=== PATIENT | female | born 1955 | race African-American/Black ===

== ENCOUNTER 2017-09-30 17:41 | Inpatient (IN) | payer MEDICAID ==
[~2017-09-30] VITALS: Ht 167.6 cm; Wt 84.8 kg
[~2017-09-30 17:41] MED LIST: ASPI-1158 PO; ATOR10TA69 PO; BENA5TAB3 PO; CITA20TA11 PO; D-ME473S8 PO; FERR-63 PO; GABA800T97 PO; INSLAN SUBCUT; INSU100C6 SQ; METF500T4 PO; MIRT15TA6 PO
[2017-09-30] MEDS ORDERED: ONDANSETRON HCL 4MG/2ML VIAL IV STA (18:23)
[2017-09-30] MEDS ORDERED: SODIUM CHLORIDE 0.9% 500 ML IV ONE (18:23)
[2017-09-30] MEDS ORDERED: MORPHINE SULFATE 4 MG/ML CPJ (NOT FOR IM USE) IV STA (18:23)
[2017-09-30] MEDS ORDERED: INSULIN REGULAR (HUMULIN R) UD 100 UNITS/ML SYR SUBCUT ONE (18:30)
[2017-09-30 19:10] LABS: INR 1.1; PARTIAL THROMBOPLASTIN TIME 23.9 sec (23.4-31.0); PROTHROMBIN TIME 11.1 sec (9.4-11.6)
[2017-09-30 19:12] LABS: BASOPHILS % 0.4 % (0.0-2.0); EOSINOPHILS % 2.1 % (0.0-5.0); HEMATOCRIT. 35.4 % (36.0-48.0); HEMOGLOBIN. 11.7 g/dL (12.0-16.0); LYMPHOCYTES % 19.5 % (20.0-50.0); MEAN CORPUSCULAR HEMOGLOBIN 28.5 pg (28.0-32.0); MEAN CORPUSCULAR VOLUME 86.4 fL (81.0-99.0); MONOCYTES % 9.2 % (2.0-8.0); NEUTROPHILS % 68.8 % (40.0-76.0); PLATELET 226 x1000/uL (130-400); RED CELL DISTRIBUTION WIDTH 14.5 % (11.6-14.6)
[2017-09-30 19:15] LABS: CARBON DIOXIDE 24 mEq/L (21-32); CHLORIDE 103 mEq/L (98-107); TROPONIN I <0.01 ng/mL ng/mL (0.00-0.04)
[2017-09-30 19:16] LABS: CREATINE KINASE MB FRACTION 2.1 ng/mL (0.5-3.6)
[2017-09-30] MEDS ORDERED: INSULIN REGULAR (HUMULIN R) 300UNITS/3ML IV ONE (20:15)
[2017-09-30] MEDS ORDERED: SODIUM POLYSTYRENE SULFONATE 15 G/60 ML BOT PO ONE (20:15)
[2017-09-30] MEDS ORDERED: ALBUTEROL (0.083%) 2.5MG/3ML NEB HHN ONE (20:15)
[2017-09-30] MEDS ORDERED: SODIUM BICARBONATE 8.4% 1 MEQ/ML 50ML SYR IV ONE (20:15)
[2017-09-30] MEDS ORDERED: CEFTRIAXONE 1 G PREMIX 50 ML IV ONE (21:15)
[2017-09-30 21:29] LABS: CLARITY URINE CLEAR (CLEAR); COLOR URINE YELLOW (YELLOW); KETONES URINE TRACE (NEGATIVE); LEUKOCYTE ESTERASE URINE 1+ (NEGATIVE); NITRITE URINE NEGATIVE (NEGATIVE); OCCULT BLOOD URINE 1+ (NEGATIVE); PROTEIN URINE 2+ (NEGATIVE); SPECIFIC GRAVITY URINE 1.028 (1.005-1.030); UROBILINOGEN URINE 0.2 E.U./dL (0.2-1.0)
[2017-09-30] MEDS ORDERED: SODIUM CHLORIDE 0.9% 1,000 ML IV SCH (22:40)
[2017-09-30] MEDS ORDERED: ENOXAPARIN 40MG/0.4ML SYR SUBCUT SCH (22:45)
[2017-09-30] MEDS ORDERED: ONDANSETRON HCL 4MG/2ML VIAL IV PRN (22:45)
[2017-09-30] MEDS ORDERED: ACETAMINOPHEN 325MG TABLET PO PRN (22:45)
[2017-09-30] MEDS ORDERED: CLONIDINE 0.1MG TABLET PO PRN (22:45)
[2017-09-30] MEDS ORDERED: IPRATROPIUM/ALBUTEROL 0.5-3(2.5)MG/3ML NEB INH PRN (22:45)
[2017-09-30] MEDS ORDERED: MAGNESIUM/ALUMINUM HYDROXIDE/SIMETHICONE 30ML UDC PO PRN (22:45)
[2017-10-01] VITALS (7 sets, daily range): BP systolic 75–132; BP diastolic 37–82
[2017-10-01] MEDS ORDERED: MORPHINE SULFATE 4 MG/ML CPJ (NOT FOR IM USE) IV SCH (01:56)
[2017-10-01] MEDS ORDERED: INSULIN REGULAR (HUMULIN R) 300UNITS/3ML SUBCUT SCH (02:30)
[2017-10-01] MEDS ORDERED: DEXTROSE 50% WATER 50ML SYRINGE IV PRN (08:15)
[2017-10-01] MEDS ORDERED: INSULIN LISPRO 100 UNITS/ML SUBCUT SCH (09:15)
[2017-10-01] MEDS: ENOXAPARIN 40MG/0.4ML SYR SUBCUT SCH (09:16)
[2017-10-01] MEDS: INSULIN LISPRO 100 UNITS/ML SUBCUT SCH ×5 (09:18→21:43)
[2017-10-01 10:23] LABS: *AMPHETAMINES SCREEN URINE NEGATIVE (NEGATIVE); *BARBITURATES SCREEN URINE NEGATIVE (NEGATIVE); *BENZODIAZEPINES SCREEN URINE NEGATIVE (NEGATIVE); *COCAINE SCREEN URINE NEGATIVE (NEGATIVE); CANNABINOID URINE SCREEN NEGATIVE (NEGATIVE); METHADONE URINE SCREEN NEGATIVE (NEGATIVE); OPIATES URINE SCREEN NEGATIVE (NEGATIVE); PHENCYCLIDINE URINE SCREEN NEGATIVE (NEGATIVE)
[2017-10-01] MEDS: BLOOD SUGAR DIAGNOSTIC STRIP TEST SCH ×3 (12:16→21:00)
[2017-10-01] MEDS ORDERED: HYDROCODONE/ACETAMINOPHEN 5/325MG TABLET PO PRN (12:30)
[2017-10-01 12:36] LABS: CLARITY URINE CLOUDY (CLEAR); COLOR URINE YELLOW (YELLOW); KETONES URINE NEGATIVE (NEGATIVE); LEUKOCYTE ESTERASE URINE 2+ (NEGATIVE); NITRITE URINE NEGATIVE (NEGATIVE); OCCULT BLOOD URINE TRACE (NEGATIVE); PROTEIN URINE 1+ (NEGATIVE); UROBILINOGEN URINE 0.2 E.U./dL (0.2-1.0)
[2017-10-01] MEDS: MORPHINE SULFATE 4 MG/ML CPJ (NOT FOR IM USE) IV PRN ×2 (18:51→23:11)
[2017-10-01] MEDS: INSULIN GLARGINE UD 100 UNITS/ML SYR SUBCUT SCH (21:45)
[2017-10-01] MEDS: SODIUM CHLORIDE 0.9% 1,000 ML IV SCH (21:47)
[2017-10-02] VITALS (8 sets, daily range): BP systolic 91–158; BP diastolic 53–82
[2017-10-02] MEDS: SODIUM CHLORIDE 0.9% 1,000 ML IV SCH ×3 (05:23→21:25)
[2017-10-02] MEDS: MORPHINE SULFATE 4 MG/ML CPJ (NOT FOR IM USE) IV PRN ×4 (05:38→20:13)
[2017-10-02] MEDS: BLOOD SUGAR DIAGNOSTIC STRIP TEST SCH ×4 (06:59→20:12)
[2017-10-02] MEDS: INSULIN LISPRO 100 UNITS/ML SUBCUT SCH ×7 (07:04→20:12)
[2017-10-02] MEDS: ENOXAPARIN 40MG/0.4ML SYR SUBCUT SCH (08:16)
[2017-10-02 10:25] LABS: BASOPHILS % 0.7 % (0.0-2.0); EOSINOPHILS % 3.9 % (0.0-5.0); HEMATOCRIT. 31.2 % (36.0-48.0); HEMOGLOBIN. 10.3 g/dL (12.0-16.0); LYMPHOCYTES % 35.1 % (20.0-50.0); MEAN CORPUSCULAR HEMOGLOBIN 28.5 pg (28.0-32.0); MEAN CORPUSCULAR VOLUME 86.1 fL (81.0-99.0); MEAN PLATELET VOLUME 10.9 fl (7.4-10.4); MONOCYTES % 8.2 % (2.0-8.0); NEUTROPHILS % 52.1 % (40.0-76.0); PLATELET 184 x1000/uL (130-400); RED BLOOD CELL COUNT 3.62 mill/uL (4.2-5.4); RED CELL DISTRIBUTION WIDTH 14.4 % (11.6-14.6)
[2017-10-02] MEDS: INSULIN GLARGINE UD 100 UNITS/ML SYR SUBCUT SCH ×2 (11:06→21:25)
[2017-10-02 11:34] LABS: PHOSPHORUS 2.5 mg/dL (2.5-4.9)
[2017-10-03] VITALS: BP 120/56
[2017-10-03] MEDS: MORPHINE SULFATE 4 MG/ML CPJ (NOT FOR IM USE) IV PRN ×2 (00:11→04:38)
[2017-10-03 04:00] VITALS: BP 118/70
[2017-10-03] MEDS: BLOOD SUGAR DIAGNOSTIC STRIP TEST SCH ×2 (05:52→12:29)
[2017-10-03] MEDS: INSULIN LISPRO 100 UNITS/ML SUBCUT SCH ×3 (06:30→12:40)
[2017-10-03 06:37] LABS: BASOPHILS % 0.5 % (0.0-2.0); EOSINOPHILS % 5.2 % (0.0-5.0); HEMATOCRIT. 28.9 % (36.0-48.0); HEMOGLOBIN. 9.7 g/dL (12.0-16.0); LYMPHOCYTES % 32.9 % (20.0-50.0); MEAN CORPUSCULAR HEMOGLOBIN 29.2 pg (28.0-32.0); MEAN CORPUSCULAR VOLUME 86.9 fL (81.0-99.0); MEAN PLATELET VOLUME 11.1 fl (7.4-10.4); MONOCYTES % 10.1 % (2.0-8.0); NEUTROPHILS % 51.3 % (40.0-76.0); PLATELET 147 x1000/uL (130-400); RED BLOOD CELL COUNT 3.33 mill/uL (4.2-5.4); RED CELL DISTRIBUTION WIDTH 14.3 % (11.6-14.6)
[2017-10-03 08:00] VITALS: BP_SYST 127; BP_SYST 92; BP_DIAS 63; BP_DIAS 64
[2017-10-03] MEDS: SODIUM CHLORIDE 0.9% 1,000 ML IV SCH (08:16)
[2017-10-03] MEDS: ENOXAPARIN 40MG/0.4ML SYR SUBCUT SCH (08:22)
[2017-10-03 08:56] VITALS: BP 123/69
[2017-10-03 09:23] LABS: PHOSPHORUS 3.3 mg/dL (2.5-4.9)
[2017-10-03] MEDS: INSULIN GLARGINE UD 100 UNITS/ML SYR SUBCUT SCH (09:34)
[2017-10-03 10:07] LABS: KAPPA LT CHAINS FREE SERUM 91.9 mg/L (3.3-19.4); KAPPA/LAMBDA RATIO 1.7 (0.26-1.65); LAMBDA LT CHAINS FREE SERUM 54.2 mg/L (5.7-26.3)
[2017-10-03 12:22] VITALS: BP 132/74
[2017-10-03 13:57] VITALS: BP 132/74
== END 2017-10-03 15:00 | disposition home or self-care (01) | DRG 135 ==
LOC: ER 18:08 → 8WST 20:46 → ENRESERV 22:06 → ER 10-01 04:56
PROVIDERS: ADMIT Internal Medicine; ATTEND Internal Medicine
PROC: 05HY33Z Insertion of Infusion Device into Upper Vein, Percutaneous Approach (ICD-10-PCS; principal; 2017-10-01)
PROC: B54MZZA Ultrasonography of Right Upper Extremity Veins, Guidance (ICD-10-PCS; 2017-10-01)
DX: S22.42XA Multiple fractures of ribs, left side, initial encounter for closed fracture (principal); E11.22 Type 2 diabetes mellitus with diabetic chronic kidney disease; N17.9 Acute kidney failure, unspecified; N18.3 Chronic kidney disease, stage 3 (moderate); E11.65 Type 2 diabetes mellitus with hyperglycemia; S09.90XA Unspecified injury of head, initial encounter; E87.5 Hyperkalemia; W18.30XA Fall on same level, unspecified, initial encounter; J44.9 Chronic obstructive pulmonary disease, unspecified; I12.9 Hypertensive chronic kidney disease with stage 1 through stage 4 chronic kidney disease, or unspecified chronic kidney disease; D64.9 Anemia, unspecified; B19.20 Unspecified viral hepatitis C without hepatic coma; Z79.4 Long term (current) use of insulin; Z79.82 Long term (current) use of aspirin; Z79.899 Other long term (current) drug therapy; Z82.49 Family history of ischemic heart disease and other diseases of the circulatory system; Z83.3 Family history of diabetes mellitus; F11.90 Opioid use, unspecified, uncomplicated; Z79.84 Long term (current) use of oral hypoglycemic drugs; N39.0 Urinary tract infection, site not specified
CPT/HCPCS: 36415; 36569; 70450; 70551; 71045; 71101; 76770; 76937; 80048; 80053; 80305; 81001; 82010; 82553; 82784; 82962; 83036; 83735; 83883; 84100; 84484; 85025; 85610; 85730; 86334; 93005; 94640; 96374; 96375; 99285; C1725; C1769; J0696; J1650; J1815; J2270; J2405; J3490; J7030; J7040; J7611

== ENCOUNTER 2017-10-04 13:13 | Emergency (ER) | payer MEDICAID ==
[~2017-10-04] VITALS: Ht 165.1 cm; Wt 66.0 kg
[2017-10-04 14:23] LABS: BASOPHILS % 0.8 % (0.0-2.0); HEMATOCRIT. 42.4 % (36.0-48.0); HEMOGLOBIN. 14.1 g/dL (12.0-16.0); LYMPHOCYTES % 36.8 % (20.0-50.0); MEAN CORPUSCULAR VOLUME 90.5 fL (81.0-99.0); MEAN PLATELET VOLUME 9.3 fl (7.4-10.4); NEUTROPHILS % 50.4 % (40.0-76.0); PLATELET 219 x1000/uL (130-400); RED BLOOD CELL COUNT 4.68 mill/uL (4.2-5.4); RED CELL DISTRIBUTION WIDTH 14.1 % (11.6-14.6)
[2017-10-04 14:29] LABS: INR 1.1; PROTHROMBIN TIME 11.4 sec (9.4-11.6)
[2017-10-04 14:31] LABS: CHLORIDE 112 mEq/L (98-107)
[2017-10-04 14:34] LABS: AMMONIA 25 uMol/L (<32)
[2017-10-04 14:36] LABS: CLARITY URINE CLEAR (CLEAR); COLOR URINE YELLOW (YELLOW); KETONES URINE NEGATIVE (NEGATIVE); LEUKOCYTE ESTERASE URINE 1+ (NEGATIVE); NITRITE URINE NEGATIVE (NEGATIVE); OCCULT BLOOD URINE TRACE (NEGATIVE); PH URINE 5.5 (4.5-8.0); PROTEIN URINE 1+ (NEGATIVE); UROBILINOGEN URINE 0.2 E.U./dL (0.2-1.0)
[2017-10-04 14:41] LABS: CARBON DIOXIDE 26 mEq/L (21-32); CREATINE KINASE 29 IU/L (26-192); ETHANOL BLOOD < 10 mg/dL
[2017-10-04 14:49] LABS: *AMPHETAMINES SCREEN URINE NEGATIVE (NEGATIVE); *BARBITURATES SCREEN URINE NEGATIVE (NEGATIVE); *BENZODIAZEPINES SCREEN URINE NEGATIVE (NEGATIVE); *COCAINE SCREEN URINE NEGATIVE (NEGATIVE); CANNABINOID URINE SCREEN NEGATIVE (NEGATIVE); METHADONE URINE SCREEN NEGATIVE (NEGATIVE); OPIATES URINE SCREEN PRESUMTIVE POSITIVE (NEGATIVE); PHENCYCLIDINE URINE SCREEN NEGATIVE (NEGATIVE)
[2017-10-04 17:11] VITALS: BP 130/66
[2017-10-04] MEDS ORDERED: CEPHALEXIN 500MG CAPSULE PO ONE (17:15)
== END 2017-10-04 18:10 | disposition home or self-care (01) ==
LOC: ER 13:13
DX: R41.82 Altered mental status, unspecified (principal); N39.0 Urinary tract infection, site not specified; E11.9 Type 2 diabetes mellitus without complications; I10 Essential (primary) hypertension; Z79.4 Long term (current) use of insulin; Z79.82 Long term (current) use of aspirin
CPT/HCPCS: 36415; 70450; 71045; 80053; 80305; 81001; 82140; 82550; 85025; 85610; 93005; 99285; G0482; Z7610

== ENCOUNTER 2022-05-03 01:51 | Emergency (ER) | payer MEDICARE, MEDICAID ==
[~2022-05-03] VITALS: Ht 170.2 cm; Wt 73.0 kg
[~2022-05-03 01:51] MED LIST changes: -ASPI-1158 PO; +ASPI-1406 PO; -BENA5TAB3 PO; +BENA5TAB40 PO; -CITA20TA11 PO; +CITA20TA75 PO; -INSLAN SUBCUT; -INSU100C6 SQ; +METF-414 PO; -METF500T4 PO; +MIRT-89 PO; -MIRT15TA6 PO
[2022-05-03] MEDS ORDERED: SODIUM CHLORIDE 0.9% 1,000 ML IV ONE (02:30)
[2022-05-03 03:44] LABS: BASOPHILS % 0.4 % (0.0-2.0); EOSINOPHILS % 1.2 % (0.0-5.0); HEMATOCRIT. 30.3 % (36.0-48.0); HEMOGLOBIN. 10.1 g/dL (12.0-16.0); LYMPHOCYTES % 12.5 % (20.0-50.0); MEAN CORPUSCULAR HEMOGLOBIN 30.1 pg (28.0-32.0); MEAN CORPUSCULAR VOLUME 90.3 fL (81.0-99.0); MEAN PLATELET VOLUME 10.1 fl (7.4-10.4); MONOCYTES % 5.7 % (2.0-8.0); NEUTROPHILS % 80.2 % (40.0-76.0); PLATELET 257 x1000/uL (130-400); RED BLOOD CELL COUNT 3.36 mill/uL (4.2-5.4); RED CELL DISTRIBUTION WIDTH 16.6 % (11.6-14.6)
[2022-05-03] MEDS ORDERED: VANCOMYCIN 1G PREMIX 200 ML IV ONE (03:45)
[2022-05-03] MEDS ORDERED: PIPERACILLIN/TAZ 3.375G PREMIX 50 ML IV ONE (03:45)
[2022-05-03 03:54] LABS: CHLORIDE 108 mEq/L (98-107)
[2022-05-03 05:20] LABS: CLARITY URINE TURBID (CLEAR); COLOR URINE YELLOW (YELLOW); KETONES URINE TRACE (NEGATIVE); LEUKOCYTE ESTERASE URINE 3+ (NEGATIVE); NITRITE URINE NEGATIVE (NEGATIVE); OCCULT BLOOD URINE 2+ (NEGATIVE); PROTEIN URINE 2+ (NEGATIVE); SPECIFIC GRAVITY URINE 1.017 (1.005-1.030); UROBILINOGEN URINE 0.2 E.U./dL (0.2-1.0)
[2022-05-03 05:30] VITALS: BP 107/84
[2022-05-03] MEDS ORDERED: SODIUM BICARBONATE 8.4% 1 MEQ/ML 50ML SYR IV ONE (08:01)
[2022-05-03] MEDS ORDERED: ATROPINE SULFATE 1MG/10ML SYR ONE (08:01)
[2022-05-03] MEDS ORDERED: EPINEPHRINE 0.1MG/ML (1:10,000) 10ML SYR ONE (08:01)
== END 2022-05-03 05:51 ==
LOC: ER 02:06 → CANBEDREQ 07:26
DX: I46.9 Cardiac arrest, cause unspecified (principal); R00.1 Bradycardia, unspecified; R94.31 Abnormal electrocardiogram [ECG] [EKG]; E11.65 Type 2 diabetes mellitus with hyperglycemia; E11.621 Type 2 diabetes mellitus with foot ulcer; I10 Essential (primary) hypertension; Z79.84 Long term (current) use of oral hypoglycemic drugs; Z79.82 Long term (current) use of aspirin; Z79.899 Other long term (current) drug therapy
CPT/HCPCS: 31500; 36415; 70450; 71045; 80053; 81003; 82962; 83605; 84484; 85025; 87040; 87086; 92950; 93005; 96361; 96365; 96367; 99291; C1893; J0461; J2543; J3370; J3490; J7030